=== PATIENT | female | born 1950 | race Caucasian/White ===

== ENCOUNTER 2017-07-02 07:53 | Inpatient (IN) | payer BC, OTHER ==
--- NOTE | 2017-06-04 13:30 | PAT Medication Instructions ---
Service Date Jun 04, 2017. Current Home Medication List Ascorbic Acid (Vitamin C), 500 MG PO QAM Andwxfo-Wrwobirzwrvju-Qkdzoubo (Excedrin Migraine), 1 TAB PO PRN Calcium Carbonate-Vitamin D (Calcium 500 + D), 1 TAB PO QAM Fluticasone Propionate (Nasal) (Flonase Allergy Relief), 2 SPRAYS INTNAS QAM Gabapentin (Neurontin), 100 MG PO TID PRN for RN Multivitamin (Multivitamin), 1 TAB PO QAM Nabumetone (Relafen), 750 MG PO BID Pantoprazole (Protonix), 40 MG PO QAM Pravastatin (Pravachol ), 80 MG PO QAM Simethicone (Gas-X), 2 TAB PO QAM [Vitamin B12], 1 TAB SL QAM Medication Instructions For Your Scheduled Surgery -Contact your surgeon if you plan on taking: Eouttfm-Gsapdnrpiiaov-Itrqfftc (Excedrin Migraine), 1 TAB PO PRN - Hold the following medications 7-10 days prior to surgery: Nabumetone (Relafen), 750 MG PO BID - Hold the following medications the morning of surgery: Simethicone (Gas-X), 2 TAB PO QAM [Vitamin B12], 1 TAB SL QAM Multivitamin (Multivitamin), 1 TAB PO QAM Calcium Carbonate-Vitamin D (Calcium 500 + D), 1 TAB PO QAM Ascorbic Acid (Vitamin C), 500 MG PO QAM - Take the following medications the morning of surgery with a sip of water: Pantoprazole (Protonix), 40 MG PO QAM Pravastatin (Pravachol ), 80 MG PO QAM Fluticasone Propionate (Nasal) (Flonase Allergy Relief), 2 SPRAYS INTNAS QAM Gabapentin (Neurontin), 100 MG PO TID PRN for RN (if needed) - Take the following medications as scheduled the night before surgery: Gabapentin (Neurontin), 100 MG PO TID PRN for RN (if needed) If you have any questions please call us at [phone] or [phone] or [phone]
[2017-06-04 14:18] LABS: BASO % 0.6 %; BASO ABS # 0.04 K/uL (0-0.2); EOS % 2.1 %; EOS ABS # 0.14 K/uL (0-0.5); HEMATOCRIT 38.3 % (37-47); HEMOGLOBIN 12.1 g/dL (12.0-16.0); IG# 0.01 K/uL (0.00-0.02); LYMPH % 25.9 %; LYMPH ABS # 1.74 K/uL (1.2-3.4); MEAN CELL VOLUME 81.8 fL (80-100); MEAN CORPUSCULAR HEMOGLOBIN 25.9 pg (25-34); MEAN CORPUSCULAR HGB CONC 31.6 g/dl (32-36); MEAN PLATELET VOLUME 10.5 fL (7.4-10.4); MONO % 6.1 %; MONO ABS # 0.41 K/uL (0.11-0.59); NEUT % 65.2 %; NEUT ABS # 4.37 K/uL (1.4-6.5); PLATELET COUNT 216 K/uL (130-400); RED CELL DISTRIBUTION WIDTH CV 15.5 % (11.5-14.5); WHITE BLOOD COUNT 6.71 K/uL (4.8-10.8)
--- NOTE | 2017-06-04 14:19 | DIAGNOSTIC IMAGING REPORT ---
CHEST 2 VIEWS ROUTINE CLINICAL HISTORY: PAT preoperative evaluation COMPARISON STUDY: No previous studies for comparison. FINDINGS: The bones soft tissues and hemidiaphragms are normal. The cardiomediastinal silhouette is normal. The lungs are clear. The pulmonary vasculature is normal. IMPRESSION: Negative chest. The above report was generated using voice recognition software. It may contain grammatical, syntax or spelling errors. Electronically signed by: Marcos Payne M.D. 06/04/2017 2:18 PM Dictated Date/Time: 06/04/2017 2:17 PM
[2017-06-04 15:15] LABS: CALCIUM 9.3 mg/dl (8.5-10.1); CREATININE 0.73 mg/dl (0.60-1.20); POTASSIUM 3.7 mmol/L (3.5-5.1)
[2017-07-02] VITALS (7 sets, daily range): BP systolic 115–153; BP diastolic 65–78; PULSE 54–89; TEMP 36.3–36.8; O2SAT 98–100; Ht 165.1 cm; Wt 85.0 kg
[~2017-07-02] VITALS: Ht 165.1 cm; Wt 85.0 kg
[~2017-07-02 07:53] MED LIST: ASCO1CAP3 PO; ASPI-390 PO; CALCTAB65 PO; CEFAZOLIN 2000MG IV PUSH 15 ML IV SCH; FLUT0.15 INTNAS; GABA-112 PO; LACTATED RINGER'S 1000ML 1,000 ML IV SCH; MULT-506 PO; NABU500T3 PO; PANT40TA PO; PRAV20TA PO; SIME80CH PO; VITAMIN B12 SL
[2017-07-02] MEDS ORDERED: FENTANYL CITRATE INJ 50 MCG/1 ML 2 ML VIAL ONE ×4 (10:48→14:43)
[2017-07-02] MEDS ORDERED: MIDAZOLAM HCL 1 MG/ML 2ML VIAL ONE (11:45)
--- NOTE | 2017-07-02 11:50 | History & Physical Bridge Note ---
H&P Re-Evaluation Bridge Note: I have examined the patient, reviewed the History & Physical and in the interval since the performance of the History & Physical I have noted the following changes of clinical significance: No changes noted
--- NOTE | 2017-07-02 11:53 | History and Physical ---
History & Physical Date Jul 02, 2017. Chief Complaint Back and leg pain History of Present Illness The patient is a 67 year old female with complaints of back and leg pain Additional History Hepatic Disease: No Endocrine Disorder: No Kidney Disease: No Hypertension: No Heart Disease: No Bleeding Tendencies: No Infectious Diseases: No Allergies Coded Allergies: Codeine (Verified Allergy, Unknown, DIZZINESS, 07/02/17) Home Medications Scheduled Ascorbic Acid (Vitamin C), 500 MG PO QAM Vufaqqs-Rdgmqfrhghxlc-Mgjrxuqa (Excedrin Migraine), 1 TAB PO PRN Calcium Carbonate-Vitamin D (Calcium 500 + D), 1 TAB PO QAM Fluticasone Propionate (Nasal) (Flonase Allergy Relief), 2 SPRAYS INTNAS QAM Multivitamin (Multivitamin), 1 TAB PO QAM Nabumetone (Relafen), 750 MG PO BID Pantoprazole (Protonix), 40 MG PO QAM Pravastatin (Pravachol ), 80 MG PO QAM Simethicone (Gas-X), 2 TAB PO QAM [Vitamin B12], 1 TAB SL QAM Scheduled PRN Gabapentin (Neurontin), 100 MG PO TID PRN for RN Physical Examination Skin: warm/dry, no rash Eyes: normal inspection, EOMI, sclerae normal ENT: normal ENT inspection, pharynx normal Head: normocephalic, atraumatic Neck: supple, no adenopathy, trachea midline Respiratory/Chest: lungs clear, normal breath sounds, no respiratory distress Cardiovascular: regular rate, rhythm, no edema, no murmur Abdomen / GI: normal bowel sounds, non tender Back: normal inspection Extremities: normal inspection, normal range of motion Neurologic/Psych: no motor/sensory deficits, alert, normal reflexes, oriented x 3 Diagnosis Lumbar spinal stenosis with spondylolisthesis Plan of Treatment L4 5 decompression and fusion possible L5-S1
[2017-07-02] MEDS ORDERED: BACITRACIN 50000 UNIT VIAL ONE (12:20)
[2017-07-02] MEDS ORDERED: BUPIVACAINE/EPINEPHRINE 0.5% MPF 1:200,000 30 ML VIAL ONE (12:20)
[2017-07-02] MEDS ORDERED: HYDROmorphone INJ 2 MG/ML SYR/VIAL ONE ×2 (13:04→14:14)
[2017-07-02] MEDS ORDERED: LIDOCAINE HCL 2% 2 ML VIAL (20MG/ML) ONE (13:17)
[2017-07-02] MEDS ORDERED: EpHEDrine SULFATE 50MG/5ML SYR ONE ×2 (13:17→14:15)
[2017-07-02] MEDS ORDERED: ONDANSETRON INJ 2 MG/ML 2 ML VIAL ONE ×2 (13:17→14:15)
[2017-07-02] MEDS ORDERED: DEXAMETHASONE SOD INJ 4 MG/ML VIAL ONE (13:17)
[2017-07-02] MEDS ORDERED: PHENYLEPHRINE 100MCG/ML 5ML SYR ONE ×2 (13:17→14:15)
[2017-07-02] MEDS ORDERED: PROPOFOL IV EMULSION 10 MG/ML 20 ML VIAL IV ONE (13:17)
[2017-07-02] MEDS ORDERED: RANITIDINE HCL 25 MG/ML INJ ONE (13:18)
[2017-07-02] MEDS ORDERED: ROCURONIUM BROMIDE 10 MG/ML 5 ML VIAL IV ONE (14:08)
[2017-07-02] MEDS ORDERED: FLOSEAL HEMOSTATIC MATRIX 10ML TOP ONE (14:11)
[2017-07-02] MEDS ORDERED: KETOROLAC TROMETHAMINE 30 MG/ML VIAL ONE (14:15)
[2017-07-02] MEDS ORDERED: GLYCOPYRROLATE INJ 0.2 MG/ML VIAL ONE (14:15)
[2017-07-02] MEDS ORDERED: NEOSTIGMINE METHYLSULFATE 1 MG/ML 10ML VIAL ONE (14:15)
[2017-07-02] MEDS ORDERED: SODIUM CHLORIDE 0.9% 1000ML 1,000 ML IV SCH (14:18)
--- NOTE | 2017-07-02 14:18 | [facility] Operative Report ---
Operative Report Operative Date Jul 02, 2017. Pre-Operative Diagnosis Lumbar Spinal Stenosis with spondylolisthesis Post-Operative Diagnosis Same Procedure(s) Performed #1 lumbar decompression medial facetectomy foraminotomies L3 4 L4 5. #2 posterior spinal fusion L4 5. #3 placement posterior instrumentation L4 5. #4 interbody fusion L4 5. #[address] Canas Utility Manager Surgeon(s) Susanna Mcgowan PA-C Estimated Blood Loss 100 mL Findings Severe spinal stenosis Description of Procedure Patient was met with preoperatively case discussed all questions addressed. After informed consent obtained patient was taken to the operative suite underwent intubation and placed in a prone position on the Amish table on top of the Mamadou frame. All bony prominences were well-padded the eyes inspected to ensure no external pressure placed upon them. This point the lumbar spine was prepped and draped in normal sterile fashion. Sharp dissection the assistance of Bovie cautery was performed onto an exposing the lamina and transverse processes of L4 and L5 bilaterally. From a caudal to cephalad fashion complete laminectomy of L4 partial laminectomy of L3 was performed addressing severe lateral recess stenosis and foraminal disease. Pedicle screws were then placed in L4 and L5 bilaterally with assistance of fluoroscopy an appropriate size alyson placed. Through a transverse foraminal approach on the right a complete discectomy was performed endplates graded to subcortical bleeding bone and a 10 x 22 mm peek cage filled with osteal bone graft tapped in position. The rods and locked and final position bilaterally. The transverse processes of L4 and L5 burred to subcortical bleeding bone. Infuse collagen sponge mass graft locally harvested morcellized autograft was placed in the posterior gutters. 15 round NAYANA drain inserted. Incision was then closed with 1 Vicryl in the fascia 2-0 Vicryl subcutaneous and 4-0 Monocryl for final skin closure. Steri-Strips dressings placed. Patient will continue PACU stable condition. Please note Susanna Reyes was present at the entire procedure involved in patient positioning complex portions of the surgery and final skin closure. I attest to the content of the Intraoperative Record and any orders documented therein. Any exceptions are noted below.
--- NOTE | 2017-07-02 14:24 | DIAGNOSTIC IMAGING REPORT ---
INTRAOPERATIVE RADIOGRAPHS CLINICAL HISTORY: L4-L5 spinal fusion. Fluoroscopy time: 19 seconds. FINDINGS: 2 spot fluoroscopic views of the lumbar spine are presented. There has been discectomy at L4-L5 with laminectomy and posterior fusion at this level. Interpedicular screws are present at both levels. The orthopedic hardware appears intact. IMPRESSION: Intraoperative images from L4 -L5 spinal fusion as above. Electronically signed by: Gage Ortiz M.D. 07/02/2017 2:22 PM Dictated Date/Time: 07/02/2017 2:21 PM
[2017-07-02] MEDS ORDERED: ESMOLOL HCL 10 MG/ML 10 ML VIAL ONE (14:25)
[2017-07-02] MEDS ORDERED: METOCLOPRAMIDE HCL INJ 5 MG/ML 2 ML VIAL IV PRN (14:30)
[2017-07-02] MEDS ORDERED: BISACODYL 10 MG SUPP PR PRN (14:30)
[2017-07-02] MEDS ORDERED: ALUMINUM/MAGNESIUM SUSP 30 ML UDC PO PRN (14:30)
[2017-07-02] MEDS ORDERED: HYDROmorphone HCL 0.5MG/ML 50 ML CASSETTE IV PRN (14:30)
[2017-07-02] MEDS ORDERED: DO NOT ADMINISTER PNEUMOCOCCAL VACCINE PRN (14:30)
[2017-07-02] MEDS ORDERED: ACETAMINOPHEN IV 100 ML IV PRN (14:30)
[2017-07-02] MEDS ORDERED: DO NOT ADMINISTER FLU VACCINE PRN (14:30)
[2017-07-02] MEDS ORDERED: LORAZEPAM INJ 0.5 MG in SYRINGE 0.75 ML IV PRN (14:30)
[2017-07-02] MEDS ORDERED: PROMETHAZINE HCL INJ 12.5 MG in SODIUM CHLORIDE 0.9% 50ML 50 ML IV PRN (14:30)
[2017-07-02] MEDS ORDERED: NALOXONE HCL 0.4 MG/1 ML VIAL/CARP IV PRN ×2 (14:30)
[2017-07-02] MEDS ORDERED: SOD PHOSPHATE/SOD BIPHOSPHATE ENEMA 132 ML BTL PR PRN (14:30)
[2017-07-02] MEDS ORDERED: LORAZEPAM 0.5 MG TAB PO PRN (14:30)
[2017-07-02] MEDS ORDERED: GABAPENTIN 100 MG CAP PO PRN (14:30)
[2017-07-02] MEDS ORDERED: hydrOXYzine HCL 25 MG TAB PO PRN (14:30)
[2017-07-02] MEDS ORDERED: MAGNESIUM HYDROXIDE SUSP 30 ML UDC PO PRN (14:30)
[2017-07-02] MEDS ORDERED: CEFAZOLIN IV 2,000 MG in DEXTROSE 5% 50ML 50 ML IV SCH (14:30)
[2017-07-02] MEDS ORDERED: FAMOTIDINE 20 MG TAB PO PRN (14:30)
[2017-07-02] MEDS ORDERED: HYDROmorphone HCL 0.5MG/ML 50 ML CASSETTE ONE (14:34)
[2017-07-02] MEDS ORDERED: HYDROmorphone INJ 1 MG/ML SYR ONE (14:43)
[2017-07-02] MEDS ORDERED: ATROPINE SULFATE 0.1 MG/ML 5ML SYR IV PRN (15:00)
[2017-07-02] MEDS ORDERED: HYDROmorphone INJ 1 MG/ML SYR IV PRN (15:00)
[2017-07-02] MEDS ORDERED: FENTANYL CITRATE INJ 50 MCG/1 ML 2 ML VIAL IV PRN (15:00)
[2017-07-02] MEDS ORDERED: ONDANSETRON INJ 2 MG/ML 2 ML VIAL IV PRN (15:00)
[2017-07-02] MEDS ORDERED: EpHEDrine SULFATE INJ 50 MG/ML AMP IV PRN (15:00)
--- NOTE | 2017-07-02 15:21 | Anesthesiology Progress Note ---
Anesthesia Post Op Note Date & Time Jul 02, 2017 at 15:21 Vital Signs Pain Intensity: 2 Vital Signs Past 12 Hours Date Time Temp Pulse Resp B/P (MAP) Pulse Ox O2 Delivery O2 Flow Rate FiO2 07/02/17 14:30 36.4 86 14 128/76 100 Oxymask 10 07/02/17 08:40 36.8 74 20 153/77 98 Room Air Notes Mental Status: alert / awake / arousable, participated in evaluation Pt Amnestic to Procedure: Yes Nausea / Vomiting: adequately controlled Pain: adequately controlled Airway Patency, RR, SpO2: stable & adequate BP & HR: stable & adequate Hydration State: stable & adequate Anesthetic Complications: no major complications apparent
[2017-07-02] MEDS: ONDANSETRON INJ 2 MG/ML 2 ML VIAL IV PRN (16:25)
[2017-07-02] MEDS: ACETAMINOPHEN 500 MG TAB PO PRN (19:43)
[2017-07-02] MEDS: DOCUSATE SODIUM/SENNA 50/8.6MG TAB PO SCH (21:00)
[2017-07-02] MEDS: SODIUM CHLORIDE 0.9% 1000ML 1,000 ML IV SCH (21:06)
[2017-07-02] MEDS: CEFAZOLIN IV 2,000 MG in SYRINGE 0 ML IV SCH (21:07)
[2017-07-02] MEDS ORDERED: NURSING VERBAL MED ORDER ONE (23:00)
[2017-07-03] MEDS: CEFAZOLIN IV 2,000 MG in SYRINGE 0 ML IV SCH (04:23)
[2017-07-03] MEDS: SODIUM CHLORIDE 0.9% 1000ML 1,000 ML IV SCH (04:23)
[2017-07-03] MEDS ORDERED: DC PCA SCH (06:00)
[2017-07-03] MEDS ORDERED: HYDROmorphone INJ 0.5 MG/0.5 ML SYR IV PRN (06:00)
[2017-07-03 07:40] VITALS: BP 120/60; PULSE 64; TEMP 36.7; O2SAT 98
[2017-07-03 07:51] LABS: BASO % 0.1 %; BASO ABS # 0.01 K/uL (0-0.2); EOS % 0.1 %; EOS ABS # 0.01 K/uL (0-0.5); HEMATOCRIT 34.4 % (37-47); HEMOGLOBIN 10.6 g/dL (12.0-16.0); IG# 0.01 K/uL (0.00-0.02); LYMPH % 14.2 %; LYMPH ABS # 1.26 K/uL (1.2-3.4); MEAN CELL VOLUME 81.3 fL (80-100); MEAN CORPUSCULAR HEMOGLOBIN 25.1 pg (25-34); MEAN CORPUSCULAR HGB CONC 30.8 g/dl (32-36); MEAN PLATELET VOLUME 10.9 fL (7.4-10.4); MONO % 7.5 %; MONO ABS # 0.66 K/uL (0.11-0.59); PLATELET COUNT 173 K/uL (130-400); RED CELL DISTRIBUTION WIDTH CV 15.4 % (11.5-14.5); RED CELL DISTRIBUTION WIDTH SD 45.9 fL (36.4-46.3); WHITE BLOOD COUNT 8.85 K/uL (4.8-10.8)
[2017-07-03] MEDS: OXYCODONE HCL IR 5 MG TAB (IMMEDIATE RELEASE) PO PRN ×3 (07:55→17:08)
[2017-07-03] MEDS ORDERED: RXC5 PO (08:18)
--- NOTE | 2017-07-03 08:18 | Discharge Instructions ---
Discharge Instructions Date of Service Jul 03, 2017. Admission Reason for Admission: Lumbar Spinal Stenosis L4-5 Discharge Discharge Diagnosis / Problem: lumbar stenosis Discharge Goals Goal(s): Improve function Activity Recommendations Activity Limitations: per Instructions/Follow-up section . Instructions / Follow-Up Instructions / Follow-Up ACTIVITY RECOMMENDATIONS: SELF CARE INSTRUCTIONS AFTER THORACIC/LUMBAR FUSIONS 1. You may walk to your tolerance. It is good exercise for your legs and back. Expect some back and intermittent leg aches and pains. 2. You may perform "counter-top" level activities (make a sandwich, markus with a project, etc.). 3. No bending or lifting of more than 10 pounds or back twisting of any nature (roll like a log when turning in bed). 4. You may ride in a car for 20-30 minutes at a time. No driving until after your first visit with your doctor. 5. Frequent changes of position and restricting sitting to 30 minutes at a time will help limit the amount of back spasms and stiffness you may experience. 6. You may discontinue the use of ambulatory aids (cane, crutches, etc.) once your strength and confidence allow. 7. You may insurance legal assistant the shower and let water strike your incision when you arrive home at least once daily. Do not take a tub bath, sit in a hot tub or go into a swimming pool until after your first recheck in the office. SPECIAL CARE INSTRUCTIONS: VERY IMPORTANT TO READ AND REVIEW A. Your surgical incision has been closed with a cosmetic suture under the skin that will dissolve in about 6 weeks. In 14 days, you can use a pair of clean scissors and cut the suture that is left outside of the skin at the ends of your incision. 1. The small skin tapes can be removed 7 days after surgery if they have not fallen off by that point. 2. You may keep the wound open to air as much as possible to promote healing after post-op day number 5 unless told otherwise by your doctor. 3. If you think the wound looks like it is becoming infected (redness or worsening drainage) and/or you are experiencing fever, chill or worsening back pain and muscle spasms, contact the office so that we may evaluate you as soon as possible. B. Complications are uncommon, but please contact us if you have any signs or symptoms of: 1. wound infection (fever higher than 102.5 degrees F, redness, separation of wound, drainage, or increasing pain from the incision) 2. blood clots in legs (pain, swelling, redness and warmth in legs) 3. urinary tract infection (fever higher than 102.5 degrees F, burning upon urination or increased frequency of urination) 4. nerve problems (inability to walk on your toes or heels, numbness, loss of bowel or bladder control) 5. any other symptoms that concern you C. Please call the office at if you have any concerns or questions about your operation or recovery. D. No smoking! Smoking drastically decreases the chance of a solid fusion. E. Do not take any anti-inflammatory medications (Indocin, Advil, Motrin, Aspirin, Naprosyn, etc.) as these may inhibit the chance of a solid fusion. Tylenol is okay to take for pain. MANAGING PAIN AFTER SPINAL SURGERY 1. Narcotic medication is intended for short-term use and will be provided for surgical pain. Surgical pain usually lasts for a period of 4-6 weeks. Narcotic medication includes Percocet, Vicodin, Darvocet, Tylenol #3 or Lortab. 2. Longer-term pain is more appropriately treated with non-narcotic medication such as Tylenol ES. 3. Muscle spasm is not appropriately treated with narcotics. Muscle relaxers such as Soma, Flexeril or Skelaxin can be used along with Tylenol ES. 4. Remember that we all live with some "aches and pains". This is not unusual or uncommon after an injury or as we get older. a. Back pain is expected and may include muscle spasms for 4 to 6 weeks after surgery. The pain should gradually improve. If the pain worsens for no apparent reason, please contact the office. b. Intermittent leg pain may also be experienced and should not be concerned about unless it worsens for no apparent reason. If so, please contact the office. 5. We will provide appropriate medication within the normal guidelines of their prescribed use. We will also be very cautious and aware of potential abuse and extended duration of patients' medication needs. a. Pain medications are for your comfort and to assist with sleep and rest so that the tissue can heal. They are not provided in order to return to normal activity and should not be used through the day. To do so or worsening pain at night can result from ongoing tissue damage and development of tolerance to the prescribed medicine. 6. Please allow 2-3 days to process refills. Prescriptions will not be mailed but must be picked up at the office. FOLLOW UP VISIT: Keep your scheduled follow-up appointment. Any questions, please call the office at . Current Hospital Diet Patient's current hospital diet: Regular Diet Discharge Diet Recommended Diet: Regular Diet Procedures Procedures Performed: #1 lumbar decompression medial facetectomy foraminotomies L3 4 L4 5. #2 posterior spinal fusion L4 5. #3 placement posterior instrumentation L4 5. #4 interbody fusion L4 5. #5 Pending Studies Studies pending at discharge: no Medical Emergencies . Who to Call and When: Medical Emergencies: If at any time you feel your situation is an emergency, please call 911 immediately. . Non-Emergent Contact Non-Emergency issues call your: Primary Care Provider . "Provider Documentation" section prepared by Willie Canas. . VTE Core Measure Inpt VTE Proph given/why not?: Jamel Carlos, SCD's
[2017-07-03 08:23] VITALS: O2SAT 95
[2017-07-03 08:25] LABS: CALCIUM 8.7 mg/dl (8.5-10.1); CREATININE 0.64 mg/dl (0.60-1.20); POTASSIUM 4.2 mmol/L (3.5-5.1)
[2017-07-03] MEDS: SIMETHICONE 80 MG CHEW PO SCH (09:00)
[2017-07-03] MEDS: PRAVASTATIN SOD 40 MG TAB PO SCH (09:33)
[2017-07-03] MEDS: PANTOprazole SOD 40 MG TAB PO SCH (09:33)
[2017-07-03] MEDS: ACETAMINOPHEN 500 MG TAB PO PRN (09:38)
[2017-07-03] MEDS ORDERED: NURSING VERBAL MED ORDER ONE (11:15)
[2017-07-03 12:07] VITALS: BP 110/64; PULSE 60; TEMP 36.8; O2SAT 98
--- NOTE | 2017-07-03 14:40 | Progress Note ---
Progress Note Date of Service Jul 03, 2017. Progress Note Back pain is controlled leg symptoms markedly improved. Vital signs are stable. On exam she's good strength testing appears comfortable. Assessment status post lumbar decompression fusion. Plan this time will continue physical therapy advance her bowel regimen anticipate home this weekend.
[2017-07-03 17:30] VITALS: O2SAT 98
[2017-07-03] MEDS: DOCUSATE SODIUM/SENNA 50/8.6MG TAB PO SCH (21:57)
[2017-07-03 23:11] VITALS: BP 120/62; PULSE 83; TEMP 37.3; O2SAT 95
[2017-07-04] VITALS (10 sets, daily range): BP systolic 97–145; BP diastolic 53–79; PULSE 63–83; TEMP 36.7–37.4; O2SAT 95–99
[2017-07-04] MEDS: POLYETHYLENE (MIRALAX) 17 GM PACK PO SCH ×4 (05:33→23:17)
[2017-07-04] MEDS: ONDANSETRON INJ 2 MG/ML 2 ML VIAL IV PRN (07:43)
[2017-07-04] MEDS: SIMETHICONE 80 MG CHEW PO SCH (09:00)
[2017-07-04] MEDS: ASPIRIN 81 MG CHEW ONE ×2 (09:27→09:33)
[2017-07-04] MEDS ORDERED: ASPIRIN 81 MG CHEW PO STA (09:43)
[2017-07-04] MEDS ORDERED: NITROGLYCERIN 0.4 MG SL PER TAB CHARGE SL PRN (09:45)
[2017-07-04] MEDS ORDERED: SODIUM CHLORIDE 0.9% 1000ML 1,000 ML IV SCH (09:45)
[2017-07-04] MEDS ORDERED: NURSING VERBAL MED ORDER ONE ×2 (09:45→12:45)
--- NOTE | 2017-07-04 09:48 | Progress Note ---
Progress Note Date of Service Jul 04, 2017. 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 : Responded to CODE PURPLE in room 311 at approx 9: 15 am pt was in bed , diaphoretic , mentions of having chest pain on left side , anxious bedside Accucheck 105 was hypotensive SBP 104 /74 ( vital on 9 am was 97/53 ) pt mentions of feeling dizzy and lightheaded while sitting on chair , was tx to bed , having chest heaviness given SL nitro , Aspirin 81 mg X1 stat stat EKG shows NSR , no acute ST-T wave change Pt's symptom was resolved after few mins of rest no complain of chest discomfort , feels exhausted no prior hx of CAD possible vasovagal episode due to orthostatic BP drop , recent anesthesia ordered for IV fluid check orthostatic vitals give pt's age/hx of hyperlipidemia /transient chest discomfort -will transfer pt to Tele to assess for cardiac arrhythmia repeat cardiac markers , resting ECHO ordered Primary Team Dr Canas updated
[2017-07-04 09:55] LABS: HEMATOCRIT 32.9 % (37-47); HEMOGLOBIN 10.7 g/dL (12.0-16.0); MEAN CELL VOLUME 79.3 fL (80-100); MEAN CORPUSCULAR HEMOGLOBIN 25.8 pg (25-34); MEAN PLATELET VOLUME 10.7 fL (7.4-10.4); PLATELET COUNT 193 K/uL (130-400); RED CELL DISTRIBUTION WIDTH CV 15.6 % (11.5-14.5); RED CELL DISTRIBUTION WIDTH SD 45.5 fL (36.4-46.3); WHITE BLOOD COUNT 10.99 K/uL (4.8-10.8)
[2017-07-04 10:08] LABS: CALCIUM 8.5 mg/dl (8.5-10.1); CREATININE 0.62 mg/dl (0.60-1.20); POTASSIUM 3.8 mmol/L (3.5-5.1)
[2017-07-04 10:23] LABS: TOTAL PROTEIN 6.3 gm/dl (6.4-8.2)
[2017-07-04 10:25] LABS: MEAN CORPUSCULAR HGB CONC 32.5 g/dl (32-36)
--- NOTE | 2017-07-04 10:33 | Progress Note ---
Progress Note Date of Service Jul 04, 2017. Progress Note Patient episode of significant back pain and lightheadedness this morning. She was transferred to the PACU. At this time she is stable appears quite cupful. Leg symptoms markedly improved. 5 signs are stable. Were pending troponin levels. On exam she's good strength testing does appear comfortable. Assessment status post lumbar decompression fusion. Plan at this time hopefully she is uneventful 24 hours in the PACU and within transfer to the orthopedic floor discharge home is scheduled.
[2017-07-04] MEDS: PRAVASTATIN SOD 40 MG TAB PO SCH (10:51)
[2017-07-04] MEDS: OXYCODONE HCL IR 5 MG TAB (IMMEDIATE RELEASE) PO PRN ×2 (10:51→20:20)
[2017-07-04] MEDS: PANTOprazole SOD 40 MG TAB PO SCH (10:52)
--- NOTE | 2017-07-04 14:57 | Medical Consult ---
History General Date of Service: Jul 04, 2017. Stated Complaint: Lumbar Spinal Stenosis L4-5 HPI The patient is a 67 year old female who presents to [facility] with complaints of Lumbar Spinal Stenosis L4-5. The patient's primary care provider is Myron Culp D.O.. Pt's medical hx includes Hyperlipidemia on Statin /Pravachol no hx of Type 2 DM , no HTN , or hx of CAD pt is non smoker , no hx of ETOH or illicit drug abuse Family hx -Mother -HTN /MD at age 70's /CHF - 1 sibling has high cholesterol pt underwent elective lumber spinal decompression surgery on 07/02/17 has uneventful chad operative course, yesterday ambulated with PT , no complain of RAMIREZ , no chest heaviness with exertion. no dizzy spell this morning had episode of hypotension leading to dizzy spell , lightheadedness and transient left sided chest pain , relief with Nitro [facility] Hospitalist consulted for medical management Historian: patient Severity: moderate Complaint Status: improved Quality of Pain: dull Modifying Factors: rest Review of Systems Constitutional: reports: as stated in HPI, diaphoresis, weakness Eyes: denies: no symptoms, as stated in HPI, eye pain, tearing, itching, redness, discharge, double vision, visual changes, blurred vision, photophobia, other ENT: denies: no symptoms, as stated in HPI, ear pain, ear discharge, loss of hearing, tinnitus, nasal pain, nasal congestion, rhinorrhea, epistaxis, sore throat, stridor, throat swelling, mouth pain, mouth swelling, dental pain, gum swelling, other Cardiovascular: reports: chest pain, chest pressure Respiratory: denies: no symptoms, as stated in HPI, cough, orthopnea, shortness of breath, stridor, wheezing, sputum production, cyanosis, RAMIREZ, PND, hemoptysis, other Gastrointestinal: reports: nausea, appetite changes Genitourinary - Female: denies: no symptoms, as stated in HPI, dysmenorrhea, dysuria, hematuria, hesitancy, menorrhagia, metrorrhagia, , rash, urinary frequency, urinary incontinence, urinary retention, urinary urgency, vaginal bleeding, vaginal discharge, vaginal itching, vulvadynia, other Neurologic: reports: as stated in HPI, dizziness, vertigo All Other Symptoms All Other Systems: Reviewed and Negative Past Medical History Past Medical History: chronic back pain, high cholesterol Past Surgical History: Knee replacement Bilateral R in 2007 /left knee on 1999 Social History Hx Tobacco Use In Past Year?: No Smoking Status: Never Smoker Allergies Coded Allergies: Codeine (Verified Adverse Reaction, Mild, DIZZINESS, 07/02/17) Current Medications Reported Home Medications Medications Dose Route/Sig Max Daily Dose Days Date Category Oxycodone HCl 5 Mg Tab 5-10 Mg PO Q4H PRN 30 07/03/17 Rx Excedrin Migraine (Nphnghv-Ghxrebttjnjbp-Zhsoaxhe) 1 Tab Tab 1 Tab PO PRN 06/04/17 Reported Flonase Allergy Relief (Fluticasone Propionate (Nasal)) 50 Mcg/Act Spr 2 Sprays INTNAS QAM 06/04/17 Reported Gas-X (Simethicone) 80 Mg Chw 2 Tab PO QAM 06/04/17 Reported [Vitamin B12] 1 Tab SL QAM 06/04/17 Reported Vitamin C (Ascorbic Acid) 500 Mg Cap 500 Mg PO QAM 06/04/17 Reported Calcium 500 + D (Calcium Carbonate-Vitamin D) 1 Tab Tab 1 Tab PO QAM 06/04/17 Reported Multivitamin (Multivitamins) Tab 1 Tab PO QAM 06/04/17 Reported Protonix (Pantoprazole Sodium) 40 Mg Tab 40 Mg PO QAM 06/04/17 Reported Pravachol (Pravastatin Sodium) 20 Mg Tab 80 Mg PO QAM 06/04/17 Reported Neurontin (Gabapentin) 100 Mg Cap 100 Mg PO TID PRN 06/04/17 Reported Relafen (Nabumetone) 500 Mg Tab 750 Mg PO BID 06/04/17 Reported Physical Physical Exam Vital Signs: Date Time Temp Pulse Resp B/P (MAP) Pulse Ox O2 Delivery O2 Flow Rate FiO2 07/04/17 12:03 96 07/04/17 11:38 37.0 63 18 108/66 (80) 95 Room Air 07/04/17 09:55 36.7 74 18 127/76 (93) 97 Nasal Cannula 2.0 07/04/17 09:47 83 16 98 07/04/17 09:45 83 145/74 (97) 98 Nasal Cannula 2.0 07/04/17 09:25 81 144/79 (100) 97 Nasal Cannula 2.0 07/04/17 09:08 73 16 97/53 (68) 97 Nasal Cannula 2.0 07/04/17 08:30 Room Air 07/04/17 07:12 37.4 76 16 127/74 (91) 96 Room Air 07/04/17 00:15 Room Air 07/03/17 23:11 37.3 83 16 120/62 (81) 95 Room Air 07/03/17 17:30 98 Room Air 3.0 General Appearance: mild distress (anxious ) Eyes: PERRLA, SCLERAE NORMAL Neck: NO TENDERNESS, NO THYROMEGALY Respiratory: BREATH SOUNDS NORMAL, CLEAR TO AUSCULTATION, NO RESPIRATORY DISTRESS Cardiovasular: REGULAR RATE/RHYTHM, NORMAL S1S2, NO MURMUR, NO JVD, NORMAL PERIPHERAL PULSES Abdomen: NON TENDER, NORMAL BOWEL SOUNDS Back: other (s/p lumber decompression surgery -NAYANA drain present ) Lower Extremities: NO EDEMA, NO DEFORMITY Diagnostics Labs Results Past 24 Hours Test 07/04/17 09:18 07/04/17 09:27 Range/Units Bedside Glucose 105 70-90 mg/dl White Blood Count 10.99 4.8-10.8 K/uL Red Blood Count 4.15 4.2-5.4 M/uL Hemoglobin 10.7 12.0-16.0 g/dL Hematocrit 32.9 37-47 % Mean Corpuscular Volume 79.3 80-100 fL Mean Corpuscular Hemoglobin 25.8 25-34 pg Mean Corpuscular Hemoglobin Concent 32.5 32-36 g/dl RDW Standard Deviation 45.5 36.4-46.3 fL RDW Coefficient of Variation 15.6 11.5-14.5 % Platelet Count 193 130-400 K/uL Mean Platelet Volume 10.7 7.4-10.4 fL Sodium Level 135 136-145 mmol/L Potassium Level 3.8 3.5-5.1 mmol/L Chloride Level 101 98-107 mmol/L Carbon Dioxide Level 27 21-32 mmol/L Anion Gap 7.0 3-11 mmol/L Blood Urea Nitrogen 13 7-18 mg/dl Creatinine 0.62 0.60-1.20 mg/dl Est Creatinine Clear Calc Drug Dose 96.8 ml/min Estimated GFR () 109.7 Estimated GFR (Non- 94.6 BUN/Creatinine Ratio 21.1 10-20 Random Glucose 106 70-99 mg/dl Calcium Level 8.5 8.5-10.1 mg/dl Total Bilirubin 0.3 0.2-1 mg/dl Direct Bilirubin 0.1 0-0.2 mg/dl Aspartate Amino Transf (AST/SGOT) 18 15-37 U/L Alanine Aminotransferase (ALT/SGPT) 15 12-78 U/L Alkaline Phosphatase 70 45-117 U/L Troponin I 0.019 0-0.045 ng/ml Total Protein 6.3 6.4-8.2 gm/dl Albumin 3.0 3.4-5.0 gm/dl Globulin 3.3 2.5-4.0 gm/dl Albumin/Globulin Ratio 0.9 0.9-2 Radiology Interpretation: CXR NORMAL EKG Interpretation: NORMAL EKG Impression Assessment and Plan PRESYNCOPE /CHEST PAIN : possible vasovagal syncope -due to orthostatic hypotension , pain meds pt reports of being very sensitive to Narcotics -has ongoing nausea pt will be observed in tele next 24 hrs to assess for arrhythmia , IVF ordered for orthostatic vital check resting ECHO shows : * There is normal left ventricular wall thickness. * No regional wall motion abnormalities noted. * The LV Ejection Fraction = 60-65%. * The right ventricle is moderately dilated. * There is mild hypokinesis of the right ventricle at the basal and mid levels with sparing of the right ventricular apex which contracts normally. * There is mild mitral annular calcification. * There is mild tricuspid regurgitation. * Doppler findings do not suggest pulmonary hypertension. CT chest : negative of PE , bilateral atelectasis lower ext Doppler negative for DVT ordered for incentive spirometry pt is counselled to follow up with Family Physician after discharge and to have cardiac stress test as out pt S/P LUMBER DECOMPRESSION SURGERY : POD # 3 cont PT/OT as per Ortho CONSTIPATION : no BM since the Surgery on Narcotic pain meds cont bowel regimen HYPERLIPIDEMIA : on Pravachol ordered for fasting lipid panel in AM FULL CODE DVT PROPHYLAXIS : per Orthopedics DISPOSITION : transfer to PCU for cardiac monitoring thank you for allowing us to participate in care of the patient , will continue to follow pt during her hospital course Ofe Lowery MD Admit To Telemetry Code Status Level 1 - Full Code DVT Prophylaxis SCDs, other (Aspirin 81 mg )
--- NOTE | 2017-07-04 19:06 | ECHOCARDIOGRAM REPORT ---
*NOTICE TO RECEIVING CONSTITUTION PARTY AGENCY This information is strictly Confidential and protected under [place] law. [place] law prohibits you from making any further disclosure of this information unless further disclosure is expressly permitted by the written consent of the person to whom it pertains or is authorized by law. A general authorization for the release of medical or other information is not sufficient for this purpose. Hospital accepts no responsibility if the information is made available to any other person, INCLUDING THE PATIENT. Interpretation Summary * Name: RADHA CONN Study Date: 07/04/2017 01:57 PM BP: 108/64 mmHg * Patient Location: C.2T\S\S242\S\2 HR: 62 * : 1950 (M/d/yyy) Gender: Female Height: 65 in * Age: 67 yrs Ethnicity: CA Weight: 184 lb * Ordering Physician: Ofe Lowery * Referring Physician: Willie Canas D.O. * Performed By: Erik Denise RDCS * * Reason For Study: Chest pain * BSA: 1.9 m2 * -- Conclusions -- * There is normal left ventricular wall thickness. * No regional wall motion abnormalities noted. * The LV Ejection Fraction = 60-65%. * The right ventricle is moderately dilated. * There is mild hypokinesis of the right ventricle at the basal and mid levels with sparing of the right ventricular apex which contracts normally. * There is mild mitral annular calcification. * There is mild tricuspid regurgitation. * Doppler findings do not suggest pulmonary hypertension. * There are no prior studies available at this institution for direct comparison. * Given clinical presentation of acute chest pain, two days after spine surgery, together with the right ventricular chamber dilatation and hypokinesis, recommend evaluation for pulmonary embolism. * Case discussed with Dr Lowery by telephone on 07/04/17 at 6:55 pm. Procedure Details * A complete two-dimensional transthoracic echocardiogram was performed (2D, M-mode, Doppler and color flow Doppler). * The study was technically difficult, but visualization was adequate with the administration of Definity ultrasound contrast. * There were technical limitations due to patient'spoor positioning * A contrast injection of Definity was performed to improve assessment of LV function. * Contrast was injected into an intravenous site in the right arm. * One vial of Definity ultrasound contrast was diluted in normal saline to a total volume of 10 ml. A total of '5' ml of solution was administered during imaging. * Lot # [id number] of Definity utilized for procedure. * Expiration date . * The attending nurse who injected the contrast agent was MICHEL Stallings. * A saline contrast injection was performed to assess for cardiac shunting. * The injection was performed through an intravenous line in the right arm. * The attending nurse who injected the saline contrast was MICHEL Stallings. * A total of 10 cc of agitated saline was given. Left Ventricle * The left ventricle is normal in size. * There is normal left ventricular wall thickness. * Left ventricular systolic function is normal. * Ejection Fraction = 60-65%. * The left ventricular wall motion is normal. * No regional wall motion abnormalities noted. Right Ventricle * The right ventricle is moderately dilated. * There is mild hypokinesis of the right ventricle at the basal and mid levels with sparing of the right ventricular apex which contracts normally. Atria * The left atrial size is normal. * Right atrial size is normal. * There is no evidence of atrial septal defect, but resolution does not allow assessment for a patent foramen ovale. Mitral Valve * There is mild mitral annular calcification. * There is no mitral valve stenosis. * Significant mitral regurgitation is absent. Tricuspid Valve * The tricuspid valve is normal. * There is no tricuspid stenosis. * There is mild tricuspid regurgitation. * Doppler findings do not suggest pulmonary hypertension. Aortic Valve * The aortic valve is trileaflet. * Aortic valve sclerosis mild, without significant aortic valvular stenosis. * Aortic stenosis is absent. * There is no significant aortic regurgitation. Pulmonic Valve * The pulmonary valve is not well seen, but the Doppler examination is normal without significant regurgitation or stenosis. Great Vessels * The aortic root and proximal ascending aorta are normal sized. Pericardium/Pleural * There is no pericardial effusion. Great Vessels * Normal inferior vena cava diameter and respiratory variation suggests normal central venous pressure. Left Ventricular Diastolic Function * Grade I diastolic dysfunction, (abnormal relaxation pattern). MMode 2D Measurements and Calculations IVSd 0.91 cm IVSs 1.4 cm LVIDd 4.6 cm LVIDs 3.1 cm LVPWd 0.89 cm LVPWs 1.4 cm IVS/LVPW 1.0 FS 33.2 % EDV(Teich) 97.1 ml ESV(Teich) 37.0 ml EF(Teich) 61.9 % EDV(cubed) 97.0 ml ESV(cubed) 28.9 ml EF(cubed) 70.2 % % IVS thick 49.3 % % LVPW thick 60.3 % LV mass(C)d 138.0 grams LV mass(C)dI 72.3 grams/m\S\2 LV mass(C)s 144.2 grams LV mass(C)sI 75.5 grams/m\S\2 SV(Teich) 60.1 ml SI(Teich) 31.5 ml/m\S\2 SV(cubed) 68.1 ml SI(cubed) 35.7 ml/m\S\2 Ao root diam 3.3 cm Ao root area 8.5 cm\S\2 ACS 1.8 cm LA dimension 4.0 cm asc Aorta Diam 3.5 cm LA/Ao 1.2 LVOT diam 2.0 cm LVOT area 3.1 cm\S\2 LVAd ap4 33.9 cm\S\2 LVLd ap4 8.7 cm EDV(MOD-sp4) 106.7 ml EDV(sp4-el) 112.4 ml LVAs ap4 13.9 cm\S\2 LVLs ap4 6.0 cm ESV(MOD-sp4) 25.6 ml ESV(sp4-el) 27.3 ml EF(MOD-sp4) 76.0 % EF(sp4-el) 75.7 % LVAd ap2 27.0 cm\S\2 LVLd ap2 7.8 cm EDV(MOD-sp2) 77.9 ml EDV(sp2-el) 79.2 ml LVAs ap2 12.7 cm\S\2 LVLs ap2 6.1 cm ESV(MOD-sp2) 20.9 ml ESV(sp2-el) 22.4 ml EF(MOD-sp2) 73.2 % EF(sp2-el) 71.7 % LVLd %diff -10.65 % EDV(MOD-bp) 97.1 ml LVLs %diff 1.5 % ESV(MOD-bp) 23.2 ml EF(MOD-bp) 76.1 % SV(MOD-sp4) 81.1 ml SI(MOD-sp4) 42.5 ml/m\S\2 SV(MOD-sp2) 57.0 ml SI(MOD-sp2) 29.9 ml/m\S\2 SV(MOD-bp) 73.9 ml SI(MOD-bp) 38.7 ml/m\S\2 SV(sp4-el) 85.1 ml SI(sp4-el) 44.5 ml/m\S\2 SV(sp2-el) 56.8 ml SI(sp2-el) 29.7 ml/m\S\2 Doppler Measurements and Calculations MV E max lorrie 72.0 cm/sec MV A max lorrie 68.6 cm/sec MV E/A 1.1 MV dec time 0.20 sec Ao V2 max 130.1 cm/sec Ao max PG 6.8 mmHg Ao max PG (full) 3.2 mmHg MAGO(V,A) 2.3 cm\S\2 MAGO(V,D) 2.3 cm\S\2 LV V1 max PG 3.5 mmHg LV V1 max 94.1 cm/sec PA V2 max 95.8 cm/sec PA max PG 3.7 mmHg PA acc slope 287.3 cm/sec\S\2 PA acc time 0.17 sec TR max lorrie 248.6 cm/sec PA pr(Accel) 4.0 mmHg
[2017-07-04] MEDS ORDERED: OPTIRAY 320 IV PRN (19:15)
--- NOTE | 2017-07-04 19:57 | DIAGNOSTIC IMAGING REPORT ---
ULTRASOUND VENOUS DOPPLER LWR EXT BILA CLINICAL HISTORY: Shortness of breath. Possible pulmonary embolus. Possible DVT. COMPARISON STUDY: No previous studies for comparison. FINDINGS: Real-time and color flow Doppler imaging were performed. Flow was seen within the femoral, popliteal and calf veins with no intraluminal thrombus demonstrated. The saphenous vein is patent. Venous waveforms demonstrate prominent pulsatility. This may indicate elevated right heart pressures. IMPRESSION: No evidence of lower extremity DVT. Electronically signed by: Edwin Villatoro M.D. 07/04/2017 7:56 PM Dictated Date/Time: 07/04/2017 7:55 PM
--- NOTE | 2017-07-04 20:01 | DIAGNOSTIC IMAGING REPORT ---
CT ANGIOGRAM OF THE CHEST CLINICAL HISTORY: Is a breath. Anterior chest pain. History of recent surgery. COMPARISON STUDY: Chest x-ray dated 06/04/2017 TECHNIQUE: Following the IV administration of 94 mL of Optiray-320, CT angiogram of the thorax was performed from the thoracic inlet to the lung bases utilizing the pulmonary embolus protocol. Images are reviewed in the axial, sagittal, and coronal planes. IV contrast was administered without complication. MIP imaging was performed. A dose lowering technique was utilized adhering to the principles of ALARA. CT DOSE: 342.73 mGy.cm FINDINGS: No pathologically enlarged axillary mediastinal or hilar lymph nodes were visualized. The ascending thoracic aorta measures 36 mm in diameter. No intimal flaps are visualized. There were no pulmonary artery filling defects to indicate acute pulmonary embolism. No pleural effusions are visualized. There are bilateral dependent atelectatic changes. There are no areas of parenchymal consolidation to indicate a pneumonia IMPRESSION: 1. No evidence of acute pulmonary embolism 2. Dependent atelectatic changes Electronically signed by: Edwin Villatoro M.D. 07/04/2017 8:00 PM Dictated Date/Time: 07/04/2017 7:56 PM
[2017-07-04] MEDS: DOCUSATE SODIUM/SENNA 50/8.6MG TAB PO SCH (20:18)
[2017-07-05] MEDS: OXYCODONE HCL IR 5 MG TAB (IMMEDIATE RELEASE) PO PRN ×2 (03:50→10:26)
[2017-07-05 04:49] VITALS: BP 149/78; PULSE 70; TEMP 36.9; O2SAT 94
[2017-07-05] MEDS: POLYETHYLENE (MIRALAX) 17 GM PACK PO SCH ×2 (05:54→12:07)
[2017-07-05] MEDS: PRAVASTATIN SOD 40 MG TAB PO SCH (07:35)
[2017-07-05] MEDS: SIMETHICONE 80 MG CHEW PO SCH (07:36)
[2017-07-05] MEDS: PANTOprazole SOD 40 MG TAB PO SCH (07:36)
[2017-07-05 07:52] VITALS: BP 114/74; PULSE 71; TEMP 37.1; O2SAT 99
[2017-07-05] MEDS ORDERED: ASPIRIN 81 MG ECTAB PO SCH (09:00)
[2017-07-05 11:49] VITALS: BP 110/71; PULSE 69; TEMP 37.1; O2SAT 96
[2017-07-05 12:37] VITALS: BP 110/71; PULSE 69; TEMP 37.1; O2SAT 96
--- NOTE | 2017-07-05 12:37 | Discharge Summary ---
Orthopedic Discharge Summary Admission Date/Reason Jul 02, 2017 at 12:00 Lumbar Spinal Stenosis L4-5. Discharge Date/Disposition Jul 05, 2017 Home Diagnosis Principal Diagnosis: Lumbar spinal stenosis Admission Physical Exam As per Admitting History & Physical. Hospital Course Patient underwent lumbar decompression fusion tolerated the procedure well and was taken to the orthopedic floor postop leak. Postoperative day #1 she was up and ambulatory but had a syncopal episode. She was transferred to the PACU. Thus far all labs are normal. She feels very good. Leg symptoms resolved. Exam she's good strength testing appears coupled. Subsequently she was discharged home. Discharge orders and instructions can be found the chart for further review. Discharge Instructions Please refer to the electronic Patient Visit Report (Discharge Instructions) for additional information.
--- NOTE | 2017-07-05 13:13 | Progress Note ---
Internal Med Progress Note Date of Service: Jul 05, 2017. Provider Documentation: SUBJECTIVE: no complain of dizzy spell or lightheadedness, ambulated in hallway this Am , no complain did not had any episode of chest discomfort or SOB last 24 hrs cardiac and pulmonary work up has been negative so far evaluated by spinal orthopedics earlier -stable to be discharged home form Orthopedics stand point pt is very eager to go home , does not have any symptoms of pulmonary or cardiac issues stable to be discharged home pre medicine perspective pt is counselled to follow up with her family physician and schedule for an out pt cardiac stress test OBJECTIVE: Vital Signs-as noted below Exam: General-no sign of distress, very pleasant, walking in room Eyes-sclera non icteric , PERRLA/EOMI ENT-NAD Neck-no JVD , no carotid bruit Lungs-CTA , no wheeze or rales Heart-regular S1/S2 Abdomen-soft , non tender , bowel sound active Extremities-s/p lumber spine decompression surgery , NAYANA drain removed , surgical incision healing well Neuro-AAO x3, no focal neurological deficit noted Lab data as noted below. ASSESSMENT & PLAN: PRESYNCOPE /CHEST PAIN : possible vasovagal syncope -due to orthostatic hypotension , pain meds -symptom has resolved after IV hydration overnight tele monitor no arrhythmia this AM pt able to ambulate independently in hallway with out any symptom of dizzy spell or other discomfort serial cardiac markers -negative AM EKG remains unchanged resting ECHO * There is normal left ventricular wall thickness. * No regional wall motion abnormalities noted. * The LV Ejection Fraction = 60-65%. * The right ventricle is moderately dilated. * There is mild hypokinesis of the right ventricle at the basal and mid levels with sparing of the right ventricular apex which contracts normally. * There is mild mitral annular calcification. * There is mild tricuspid regurgitation. * Doppler findings do not suggest pulmonary hypertension. CT chest : negative of PE , bilateral atelectasis lower ext Doppler negative for DVT instructed to use incentive spirometry q 1 hr while awake at home at least 1 week post op pt is counselled to follow up with Family Physician after discharge and to have cardiac stress test as out pt S/P LUMBER DECOMPRESSION SURGERY : POD # 4 doing well with PT/OT stable to be discharged home per Ortho CONSTIPATION : resolved had BM pt is asked cont bowel regimen -while on Narcotic pain meds HYPERLIPIDEMIA : on Pravachol fasting lipid panel in AM : shows well controlled lipid profile Total Cholesterol 150 /LDL 84 FULL CODE DVT PROPHYLAXIS : per Orthopedics DISPOSITION : stable to be discharged home today Primary team Dr Canas updated Ofe Lowery MD Vital Signs: Lab Results:
== END 2017-07-05 13:30 | disposition home or self-care (01) | DRG 455 ==
LOC: C.ACU 07:53 → C.3E 12:00 → ENRESERV 14:51 → C.2T 07-04 09:36 → ENRESERV 07-04 09:40
PROVIDERS: ADMIT Orthopaedic Surgery Orthopaedic Surgery of the Spine; ATTEND Orthopaedic Surgery Orthopaedic Surgery of the Spine
PROC: 01NB0ZZ Release Lumbar Nerve, Open Approach (ICD-10-PCS; principal; 2017-07-02 10:15)
PROC: 0SG0071 Fusion of Lumbar Vertebral Joint with Autologous Tissue Substitute, Posterior Approach, Posterior Column, Open Approach (ICD-10-PCS; principal; 2017-07-02 10:15)
PROC: 0SG00AJ Fusion of Lumbar Vertebral Joint with Interbody Fusion Device, Posterior Approach, Anterior Column, Open Approach (ICD-10-PCS; principal; 2017-07-02 10:15)
PROC: 0ST20ZZ Resection of Lumbar Vertebral Disc, Open Approach (ICD-10-PCS; principal; 2017-07-02 10:15)
DX: M48.061 Spinal stenosis, lumbar region without neurogenic claudication (principal); I95.1 Orthostatic hypotension; M43.16 Spondylolisthesis, lumbar region; E78.5 Hyperlipidemia, unspecified; K59.00 Constipation, unspecified; Z79.899 Other long term (current) drug therapy; Z88.5 Allergy status to narcotic agent